=== PATIENT | female | born 1945 | race Caucasian/White ===

== ENCOUNTER 2022-07-19 09:52 | Inpatient (IN) | payer MEDICARE, OTHER ==
[~2022-07-19] VITALS: Ht 160 cm; Wt 62.1 kg
--- NOTE | 2022-07-19 10:00 | NUR ---
Pt arrived here from [facility] ([phone]). Two workers present with patient. Neither worker knows why patient was sent to ER. Pt states,"I don't want to be here. I want to leave. There's nothing wrong. I have no pain except this blood pressure cuff." Unable to complete triage because there is no information as to why patient is here. Will attempt to contact facility to find out why patient is presently here and requires Emergency Services.
--- NOTE | 2022-07-19 10:08 | NUR ---
ER Provider called facility. Unable to receive a report as to why patient is here. Facility stated that they will attempt to locate another staff member as to why patient is here because no one currently knows why patient is here in [place] ER.
[2022-07-19] MEDS ORDERED: LORAZEPAM 0.5 MG TABLET PO ONE (11:15)
[2022-07-19] MEDS ORDERED: LORAZEPAM 0.5 MG TABLET ONE (11:19)
[2022-07-19 11:22] LABS: CREATININE 1.2 mg/dL (0.6-1.3); POTASSIUM 4.1 mmol/L (3.5-5.1)
[2022-07-19 11:35] LABS: BILIRUBIN,TOTAL 0.4 mg/dL (0.2-1.0); TOTAL PROTEIN, SERUM 6.6 g/dL (6.4-8.2)
--- NOTE | 2022-07-19 11:35 | NUR ---
Pt anxious and yelling and desiring to leave. Pt continues to verbalize being upset over young ladies that dropped her off. Failed multiple attempts to obtain blood (phlebotomy, and yours truly). ICU nurse attempting to get iv access at this time. ER provider aware.
[2022-07-19] MEDS ORDERED: IV NS 1000 ML 1,000 ML IV ONE (12:45)
--- NOTE | 2022-07-19 12:55 | NUR ---
Pt eating lunch at this time.
--- NOTE | 2022-07-19 13:25 | NUR ---
Called Maribel Treviño to relay information about pt that needs a psych eval. She will get hold of Art.
[2022-07-19 13:45] LABS: HEMATOCRIT 39.6 % (31.2-41.9); MEAN CORPUSCULAR HEMOGLOBIN 30.1 uug (24.7-32.8); MEAN CORPUSCULAR VOLUME 91.2 fL (75.5-95.3); PLATELET COUNT (AUTO) 263 K/uL (179-408)
[2022-07-19 14:04] LABS: ETHANOL < 3 MG/DL (0-0)
[2022-07-19 14:06] LABS: *BILIRUBIN,URIN NEGATIVE (NEGATIVE); *BLOOD, URINE NEGATIVE (NEGATIVE); *CLARITY,URINE CLEAR (CLEAR); *COLOR,URINE YELLOW (YELLOW); *KETONES,URINE NEGATIVE (NEGATIVE); *UROBILINOGEN,URINE 0.2 E.U./dl (NORMAL); LEUKOCYTE ESTERASE ,URINE NEGATIVE (NEGATIVE); NITRITE, URINE NEGATIVE (NEGATIVE); UGLUCOSE NEGATIVE (NEGATIVE)
--- NOTE | 2022-07-19 15:30 | NUR ---
1:1 to sitter present at this time. Pt has recently been placed on 5150 Grav[address] Disabled. ER provider notified as well as transfer and pumphouse operator chief. Awaiting bed assignment in order to give report.
[2022-07-19] MEDS ORDERED: LORAZEPAM 2 MG/1 ML VIAL IV ONE (15:45)
[2022-07-19] MEDS ORDERED: LORAZEPAM 2 MG/1 ML VIAL ONE (16:03)
[2022-07-19 16:18] LABS: ACETAMINOPHEN < 2.0 ug/mL (10-30)
[2022-07-19] MEDS ORDERED: MAG HYDROX/AL HYDROX/SIMETH 30 ML LIQUID UDC PO PRN (16:30)
[2022-07-19] MEDS ORDERED: MAGNESIUM HYDROXIDE 30 ML LIQUID UDC PO PRN (16:30)
[2022-07-19] MEDS ORDERED: ZOLPIDEM 5 MG TABLET PO PRN (16:30)
[2022-07-19] MEDS ORDERED: ACETAMINOPHEN 325 MG TABLET PO PRN (16:30)
[2022-07-19] MEDS ORDERED: LORAZEPAM 0.5 MG TABLET PO PRN (16:30)
[2022-07-19] MEDS ORDERED: CHOL200013 (17:56)
[2022-07-19] MEDS ORDERED: GABA-532 PO (17:56)
[2022-07-19] MEDS ORDERED: ONDA4TAB5 PO (17:56)
[2022-07-19] MEDS ORDERED: DOCU-141 PO (17:56)
[2022-07-19] MEDS ORDERED: LATA2.5D2 EACHEYE (17:56)
[2022-07-19] MEDS ORDERED: QUET25TA PO (17:56)
[2022-07-19] MEDS ORDERED: MIRT-119 PO (17:56)
[2022-07-19] MEDS ORDERED: CLIN300C12 PO (18:00)
--- NOTE | 2022-07-19 18:00 | NUR ---
Patient admitted to MHU, in stable condition. Report given to nurse Margaret @ [phone].
[2022-07-19 18:15] VITALS: BP 142/70
--- NOTE | 2022-07-19 18:30 | NUR ---
Admitted a 77 yo female from ER. Patient is on 5150 hold for GD. On face to face assessment patient was restless, confused, forgetful. Skin assessment was not done will endorse to next shift RN. Patient denies any suicidal or homicidal ideations nor any hallucinations or delusions. Patient signed all admission documents. Patient was offered brief orientation to unit rules and policies and given copy of patient's rights handbook. all admission will endorse to next shift.
[2022-07-19 18:33] VITALS: BP 142/70
[2022-07-19 20:17] VITALS: BP 116/52
[2022-07-19] MEDS: LATANOPROST OPHT DROP 2.5 ML BOTTLE EACHEYE SCH (21:00)
[2022-07-19] MEDS ORDERED: GABAPENTIN 100 MG CAPSULE PO SCH (21:00)
[2022-07-19] MEDS: CLINDAMYCIN HCL 300 MG CAPSULE PO SCH (21:37)
--- NOTE | 2022-07-20 04:24 | NUR ---
[facility] in the natarajan and going in and out of the other patients room. Unsteady gait noted, FWW provided. This patient has very forgetful and repeats herself over and over. Limited insight regarding the reason she is in this hospital. This video game script writer noticed the patient to be easily irritable and frustrated, raising her voice to this video game script writer. Redirection and reorientation are ongoing. The patient was medication compliant last night. Safety Stratiges are in place and staff continues to monitor the patient for any behavior escalation and medication compliance.
[2022-07-20] MEDS: CLINDAMYCIN HCL 300 MG CAPSULE PO SCH ×3 (06:00→22:00)
--- NOTE | 2022-07-20 06:28 | NUR ---
PHARMACY NOTE; Patients 0600 dose of Cleocin is temporarily unavailable . Will endorse to oncoming shift to obtain when the pharmacy staff is in house.
[2022-07-20 07:42] VITALS: BP 103/51
[2022-07-20 08:01] LABS: MEAN CORPUSCULAR HEMOGLOBIN 31.1 uug (24.7-32.8); MEAN CORPUSCULAR VOLUME 90.6 fL (75.5-95.3); PLATELET COUNT (AUTO) 289 K/uL (179-408)
[2022-07-20 08:19] LABS: BILIRUBIN,TOTAL 0.5 mg/dL (0.2-1.0); CREATININE 0.9 mg/dL (0.6-1.3); POTASSIUM 3.8 mmol/L (3.5-5.1); TOTAL PROTEIN, SERUM 6.1 g/dL (6.4-8.2)
[2022-07-20] MEDS: GABAPENTIN 100 MG CAPSULE PO SCH ×2 (08:40→21:35)
[2022-07-20 08:44] LABS: MAGNESIUM 2.1 mg/dL (1.8-2.4); PHOSPHOROUS 3.3 mg/dL (2.5-4.9)
[2022-07-20] MEDS: QUETIAPINE FUMARATE 25 MG TABLET PO SCH ×2 (17:00→21:00)
--- NOTE | 2022-07-20 18:33 | NUR ---
patient is confused and disoriented wandering in the unit unable to find her own room, requested re direction at all time .compliant with all po medication will continue close monitoring.
[2022-07-20 20:28] VITALS: BP 108/50
--- NOTE | 2022-07-20 20:30 | NUR ---
RECEIVED PATIENT IN HER ROOM IN BED. SHE IS NOTED SLEEPING BUT EASILY AROUSABLE. PATIENT NOTED A/O X 2. SHE IS EASILY IRRITABLE UPON APPROACHED. SHE REFUSED ANY ASSISTANCE FORM THIS INFORMATION SECURITY ASSOCIATE. SHE STATED, "DON'T TOUCH ME. I DON'T NEED ANY HELP. THIS IS THE WORSE PLACE I HAVE EVER BEEN". PATIENT DEMANDING AND FORGETFUL. SHE IS HARD TO REDIRECT. SHE REQUIRES REALITY ORIENTATION. HER V/S ARE STABLE. SHE IS IN NO DISTRESS, AND ABLE TO AMBULATE WITH SLOW BY STEADY GAIT. SHE FORGETS TO USE THE WALKER, FORGETS HER LIMITATIONS. SHE GETS EASILY ANGRY WHEN REMAINING HER TO USE WALKER. SHE IS REASSURED FOR HER SAFETY. SAFETY AND FALL PRECAUTIONS ARE IN PLACE. SHE WAS GIVEN PO FLUIDS AND SNACKS. WILL CONTINUE TO MONITOR.
[2022-07-20] MEDS: LATANOPROST OPHT DROP 2.5 ML BOTTLE EACHEYE SCH ×2 (21:00→21:35)
[2022-07-20] MEDS: MIRTAZAPINE 15 MG TABLET PO SCH (21:35)
--- NOTE | 2022-07-20 22:30 | NUR ---
PATIENT WAS ABLE TO TAKE REMERON AND GABAPENTIN AFTER MULTIPLE REDIRECTION, BUT REFUSED CLEOCIN AND HER EYE DROPS. SHE STATED, "I DON'T TAKE PILLS". PATIENT WAS INFORMED OF THE IMPORTANCE TO TAKE HER MEDICATION TO IMPROVED SYMPTOMS YET REFUSED. WILL CONTINUE TO MONITOR.
[2022-07-21] MEDS: CLINDAMYCIN HCL 300 MG CAPSULE PO SCH ×3 (06:00→22:00)
--- NOTE | 2022-07-21 06:48 | NUR ---
PATIENT SLEPT FOR APPROX 6HRS THROUGH THE NIGHT. SHE REFUSED CLEOCIN ATB. SHE STATED, "I DON'T TAKE PILL". SHE WAS INFORMED OF THE IMPORTANCE OF COMPILING WITH HER MEDICATION REGIMENT YET REFUSED. WILL CONTINUE TO MONITOR.
[2022-07-21 07:43] VITALS: BP 101/51
[2022-07-21] MEDS: GABAPENTIN 100 MG CAPSULE PO SCH ×2 (09:02→22:22)
[2022-07-21] MEDS: QUETIAPINE FUMARATE 25 MG TABLET PO SCH (09:02)
--- NOTE | 2022-07-21 14:43 | NUR ---
Patient is awake and responding to her name, A/OX1, disoriented to time, forgetful at times, disorganized, unable to formulate a viable plan for self care, episodes of talking to self, wandering around in the unit, continue to monitor for safety.
--- NOTE | 2022-07-21 16:07 | NUR ---
PEREZ Initial Discharge Note: Pt currently resides at [facility] [address] [place] [address] Renetta Paz [id number] ([phone]). It is unclear at this time if pt will continue care at [facility]. PEREZ will contact pt's , Eduardo ([phone]) to discuss pt's discharge plan. PEREZ will continue to work with pt, family and MD to ensure a safe and proper discharge plan.
[2022-07-21 16:10] VITALS: BP 101/49
--- NOTE | 2022-07-21 16:14 | NUR ---
Firearms Report: Tie Hacker completed and submitted a DOJ firearms report for 5150 grave disability certifications. A copy of report has been placed in patient chart.
--- NOTE | 2022-07-21 19:09 | NUR ---
Asked pt if she would like to shower and she refused. Preston showed her clean brand new folded towls, wash cloths, blankets and sheets and still pt refused. Offered to assist pt with oral care and she insist she can do it. Pt was given tooth brush and mouth wash at bedside.
[2022-07-21 19:43] VITALS: BP 106/52
[2022-07-21] MEDS ORDERED: QUETIAPINE FUMARATE 25 MG TABLET PO SCH (21:00)
[2022-07-21] MEDS: LATANOPROST OPHT DROP 2.5 ML BOTTLE EACHEYE SCH (21:00)
[2022-07-21] MEDS: MIRTAZAPINE 15 MG TABLET PO SCH (22:21)
--- NOTE | 2022-07-21 23:03 | NUR ---
patient refused her ATB, Cleocin. she stated, "I don't take medication". she was informed of the importance of taking her ATB to improved her condition, yet refused.
[2022-07-22] MEDS: CLINDAMYCIN HCL 300 MG CAPSULE PO SCH ×3 (06:00→22:00)
[2022-07-22 07:30] VITALS: BP 113/54
[2022-07-22] MEDS ORDERED: QUETIAPINE FUMARATE 25 MG TABLET PO SCH (08:00)
[2022-07-22] MEDS: GABAPENTIN 100 MG CAPSULE PO SCH ×2 (09:20→21:19)
[2022-07-22] MEDS: DIVALPROEX SPRINKLE 125 MG CAP.SPRINK PO SCH ×4 (09:20→16:57)
[2022-07-22 15:26] VITALS: BP 108/50
--- NOTE | 2022-07-22 16:00 | NUR ---
Received patient sleeping in her room. A/O X 2 to person, place. Patient is withdrawn, isolative, non interactive with staff and peers, refusing medications. Pt. states "I don't take pills, especially big ones like that!" "I don't have urinary infection. I don't have to take antibiotics!" Patient has poor insight and judgment skills. Patient is encourage to vent feelings. Fall and safety precautions implemented.
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
--- NOTE | 2022-07-22 17:33 | NUR ---
APS Report: SW called APS Hotline at [phone] and and spoke with Pat and completed APS report via telephone. SOC [id number] was emailed to [email or web address] per request. A copy was placed in the chart. Intake ID: [id number]
[2022-07-22 20:21] VITALS: BP 118/63
[2022-07-22] MEDS: QUETIAPINE FUMARATE 25 MG TABLET PO SCH ×2 (21:00→21:19)
[2022-07-22] MEDS: LATANOPROST OPHT DROP 2.5 ML BOTTLE EACHEYE SCH (21:00)
--- NOTE | 2022-07-22 22:00 | NUR ---
RECEIVED PATIENT IN HER ROOM IN BED. SHE IS NOTED SLEEPING BUT EASILY AROUSABLE. PATIENT IS A/O X 1. SHE IS FORGETFUL. SHE IS EASILY IRRITABLE ISOLATIVE AND WITHDRAWN. SHE HAS IMPAIRED INSIGHT AND JUDGMENT TO HER ADMISSION TO MHU. PATIENT IS INCONSISTENT WITH MEDICATION REGIMENT. HE REFUSED SEROQUEL AND EYE DROPS BUT SHE TOOK GABAPENTIN. SHE STATED, I DON'T TAKE MEDS. SHE WAS INFORMED OF THE IMPORTANCE TO COMPLY WITH HER MEDICATION TO IMPROVED HER CONDITION YET REFUSED. PATIENT WAS REASSURED FOR HER SAFETY. SAFETY AND FALL PRECAUTIONS ARE IN PLACE. HE WAS GIVEN PO FLUIDS AND SNACKS. HER V/S ARE STABLE, WILL CONTINUE TO MONITOR.
--- NOTE | 2022-07-22 23:00 | NUR ---
PATIENT REFUSED HER ATB CLEOCIN. MULTIPLE ATTEMPTS YET REFUSED. WILL CONTINUE TO MONITOR.
[2022-07-23] MEDS: CLINDAMYCIN HCL 300 MG CAPSULE PO SCH ×3 (06:00→22:00)
[2022-07-23] MEDS: QUETIAPINE FUMARATE 25 MG TABLET PO SCH ×2 (08:00→20:37)
[2022-07-23] MEDS: GABAPENTIN 100 MG CAPSULE PO SCH ×2 (08:26→20:36)
[2022-07-23] MEDS: DIVALPROEX SPRINKLE 125 MG CAP.SPRINK PO SCH ×3 (08:26→17:00)
--- NOTE | 2022-07-23 16:33 | NUR ---
Patient is confused, forgetful, disoriented, pacing in the hallway, intrusive going to other patient's rooms. A/O X 2 to person. Patient is refusing all medications. Pt. states "I don't need to take meds. They make me sick". Reality orientation provided. Fall and safety precautions implemented.
[2022-07-23] MEDS: LATANOPROST OPHT DROP 2.5 ML BOTTLE EACHEYE SCH (20:36)
--- NOTE | 2022-07-24 03:02 | NUR ---
Patient remains confused and noncompliant with all medications. Many attempts to encourage and educate the patient on the importance of taking her medications were unsuccessful. During the shift , this patient required frequent redirection and reorientation. Safety Stratiges are in place and continuing to monitor the patient for behavior escalation d/t the patient having poor impulse control and she gets irritated easily.
[2022-07-24] MEDS: CLINDAMYCIN HCL 300 MG CAPSULE PO SCH ×3 (06:00→21:10)
--- NOTE | 2022-07-24 06:29 | NUR ---
Patient up early, refusing medications, refused VS and refusing to take a shower. Total sleep hour were 4.00. Redirection and reorientation provided as needed.
[2022-07-24] MEDS: QUETIAPINE FUMARATE 25 MG TABLET PO SCH ×2 (08:00→21:10)
[2022-07-24] MEDS: DIVALPROEX SPRINKLE 125 MG CAP.SPRINK PO SCH ×3 (08:28→17:00)
[2022-07-24] MEDS: GABAPENTIN 100 MG CAPSULE PO SCH ×2 (08:28→21:11)
--- NOTE | 2022-07-24 11:35 | NUR ---
SNF Referral: SW faxed patient's referral packet including: History and Physical, Consultation, Progress Notes, Medication List and Labs to the following facilities for review and possible snf placement: [facility] [address] [place] [address] ([phone]) [facility] [place] [address] ([phone]) attn: imani Cooper [facility] [address] [place] [address] ([phone]) attn: Jolanta.
--- NOTE | 2022-07-24 12:57 | NUR ---
PC Hearing: Patient had 5250 probable cause hearing on 07/23/22 and it was upheld for grave disability.
--- NOTE | 2022-07-24 15:16 | NUR ---
SW Discharge Update: Received voice mail from [facility] declining referral due to psych primary diagnosis.
--- NOTE | 2022-07-24 15:17 | NUR ---
Patient is isolative, withdrawn, uncooperative with care, refusing medications, disheveled, confused, forgetful, and disorganized. A/O X 2 to person. Pt. is encourage to verbalize concerns. Fall and safety precautions implemented.
[2022-07-24 20:37] VITALS: BP 95/59
[2022-07-24] MEDS: LATANOPROST OPHT DROP 2.5 ML BOTTLE EACHEYE SCH (21:00)
[2022-07-25] MEDS: CLINDAMYCIN HCL 300 MG CAPSULE PO SCH ×3 (05:42→21:40)
--- NOTE | 2022-07-25 05:43 | NUR ---
Patient refused all scheduled medications this shift states that I don't like pills. Explains to patient the importance of taking her medications she continues to refused care from nursing staff. Safety maintained during shift.
[2022-07-25 07:30] VITALS: BP 118/55
[2022-07-25] MEDS: QUETIAPINE FUMARATE 25 MG TABLET PO SCH ×2 (08:00→20:52)
[2022-07-25] MEDS: GABAPENTIN 100 MG CAPSULE PO SCH ×2 (08:47→20:50)
[2022-07-25] MEDS: DIVALPROEX SPRINKLE 125 MG CAP.SPRINK PO SCH ×3 (08:47→17:00)
[2022-07-25 17:31] VITALS: BP 124/58
--- NOTE | 2022-07-25 18:30 | NUR ---
Patient is withdrawn, isolative, confinding in her room, refusing medications, disoriented, confused, forgetful. A/O X 1 to person. Emotional support provided. Fall and safety precautions implemented.
[2022-07-25 20:00] VITALS: BP 139/76
[2022-07-25] MEDS: LATANOPROST OPHT DROP 2.5 ML BOTTLE EACHEYE SCH (21:00)
[2022-07-26] MEDS: CLINDAMYCIN HCL 300 MG CAPSULE PO SCH ×2 (06:21→13:07)
--- NOTE | 2022-07-26 06:39 | NUR ---
Patient took all PO medications at 2100 in apple sauce. Slept for approximately 8 hours. She took part of medication this morning in apple sauce then refused part of the medication complains that she did not like the taste. She continues to refuse despite much encouragement.
[2022-07-26 07:55] VITALS: BP 99/55
[2022-07-26] MEDS: QUETIAPINE FUMARATE 25 MG TABLET PO SCH ×2 (08:00→20:52)
[2022-07-26] MEDS: DIVALPROEX SPRINKLE 125 MG CAP.SPRINK PO SCH ×3 (08:30→16:48)
[2022-07-26] MEDS: GABAPENTIN 100 MG CAPSULE PO SCH ×2 (08:31→20:52)
--- NOTE | 2022-07-26 10:37 | NUR ---
Pt received lying in bed resting comfortably. Refuses all scheduled medications. States "I just don't take any meds, I don't like it." Pt is isolative, guarded, and withdrawn. No aggressive or combative behavior noted at this time.
[2022-07-26] MEDS: ENSURE ENLIVE (VAN) 240 ML LIQUID PO SCH (13:06)
[2022-07-26 16:16] VITALS: BP 106/49
[2022-07-26 19:51] VITALS: BP 102/58
[2022-07-26] MEDS: LATANOPROST OPHT DROP 2.5 ML BOTTLE EACHEYE SCH (20:52)
[2022-07-27 07:50] VITALS: BP 124/68
[2022-07-27] MEDS: QUETIAPINE FUMARATE 25 MG TABLET PO SCH ×2 (08:00→21:00)
[2022-07-27] MEDS: GABAPENTIN 100 MG CAPSULE PO SCH ×2 (08:11→21:00)
[2022-07-27] MEDS: DIVALPROEX SPRINKLE 125 MG CAP.SPRINK PO SCH ×3 (08:11→16:35)
[2022-07-27] MEDS: ENSURE ENLIVE (VAN) 240 ML LIQUID PO SCH (08:12)
--- NOTE | 2022-07-27 14:24 | NUR ---
Received patient in room confused and disoriented , refused all scheduled medication she state that" i don't take any medication" explains to patient how important for mrdication taken ,patient still refused waiting for Riese hearing .patient refused to attend in group activity .
[2022-07-27 16:09] VITALS: BP 98/51
[2022-07-27 19:57] VITALS: BP 93/56
[2022-07-27] MEDS: LATANOPROST OPHT DROP 2.5 ML BOTTLE EACHEYE SCH (21:00)
--- NOTE | 2022-07-27 22:00 | NUR ---
Received patient in her room sitting in her bed. she was noted A/O x 1. Although, she was noted calm and pleasant upon approached, she is uncooperative with her medication regiment. she refused all her [facility] medications. she was informed of the importance to comply with her medication to improve her condition, yet refused. Patient was reassured for her safety. safety and fall precautions are in place, V/S stable. she was given PO fluids ans snacks. will continue to monitor.
[2022-07-28 07:45] VITALS: BP 117/64
[2022-07-28] MEDS: QUETIAPINE FUMARATE 25 MG TABLET PO SCH ×2 (08:00→20:59)
[2022-07-28] MEDS: DIVALPROEX SPRINKLE 125 MG CAP.SPRINK PO SCH ×3 (08:20→17:00)
[2022-07-28] MEDS: GABAPENTIN 100 MG CAPSULE PO SCH ×2 (08:21→20:58)
[2022-07-28] MEDS: ENSURE ENLIVE (VAN) 240 ML LIQUID PO SCH (08:22)
--- NOTE | 2022-07-28 08:30 | NUR ---
Risa Paz faxed to court and follow with court spoke with Samaria.
--- NOTE | 2022-07-28 09:34 | NUR ---
PEREZ Discharge Update: PEREZ spoke with Allison, health and wellness coordinator at [address] [place] [address] ([phone]) who confirmed they are able to accept pt and have capability to accommodate pt's level of care needs.
--- NOTE | 2022-07-28 09:36 | NUR ---
SW Family Contact: SW called and spoke with pt's , Eduardo ([phone]) and discussed discharge plan updates. Pt will be transferring to [facility] on 07/29/22. Pt's verbalized understanding and is in agreement with plan.
--- NOTE | 2022-07-28 15:44 | NUR ---
patient continue refused all medication ,no agitation or aggressive Behavior noted ,will be discharged to [facility] in AM.
[2022-07-28 15:59] VITALS: BP 112/59
[2022-07-28 20:00] VITALS: BP 117/71
[2022-07-28] MEDS: LATANOPROST OPHT DROP 2.5 ML BOTTLE EACHEYE SCH (20:58)
[2022-07-29 07:30] VITALS: BP 119/63
[2022-07-29] MEDS: QUETIAPINE FUMARATE 25 MG TABLET PO SCH (08:00)
[2022-07-29] MEDS: GABAPENTIN 100 MG CAPSULE PO SCH (08:36)
[2022-07-29] MEDS: ENSURE ENLIVE (VAN) 240 ML LIQUID PO SCH (08:37)
[2022-07-29] MEDS: DIVALPROEX SPRINKLE 125 MG CAP.SPRINK PO SCH (08:37)
--- NOTE | 2022-07-29 09:44 | NUR ---
PEREZ Final Discharge Note: Pt will be discharged to [facility] [address] [facility], [place] [address] ([phone]) via Ambulance transportation at 11AM. PEREZ spoke with admin coordinator at the facility, Allison, who states they are ready to accept the patient today in room 231B. Pt is aware and agreeable with discharge plan. Pt is alert and oriented x1, is unable to plan for self-care at this time. However, pt is willing to accept care at SNF. Pt denies any suicidal or homicidal ideation. Pt will follow-up at the facility with Psychiatrist, AVA Burden, Bridge Construction Inspector, Dr. Sage, and Psychologist, Dr. Murray. Pt presents with calm mood and congruent affect. Addendum: 07/29/22 at 1105 by MICHELLE Tamez [facility] address: [address] [place] [id number]
--- NOTE | 2022-07-29 11:15 | NUR ---
Received orders to discharge this patient to [facility] by [facility] at 11PM. Patient is agreeable with discharge plans but refused to sign discharge documents. All belongings and medications were returned to patient. Patient left the unit at 11:15. Emotional support provided. Fall and safety precautions implemented.
== END 2022-07-29 11:15 | DRG 885 ==
LOC: ER 09:55 → GPS 16:19
PROVIDERS: ADMIT Psychiatry & Neurology Psychiatry; ATTEND Registered Nurse
DX: F29 Unspecified psychosis not due to a substance or known physiological condition (principal); F03.92 Unspecified dementia, unspecified severity, with psychotic disturbance; E78.5 Hyperlipidemia, unspecified; Z91.199 Patient's noncompliance with other medical treatment and regimen due to unspecified reason; R26.9 Unspecified abnormalities of gait and mobility; F60.3 Borderline personality disorder; Z98.890 Other specified postprocedural states
CPT/HCPCS: 36415; 83735; 84100; 84443; 85025; A4663; G0480; J2060; J7040